=== PATIENT | female | born 1955 | race Asian ===

== ENCOUNTER 2017-08-03 06:14 | Day surgery (SDC) | payer BC, OTHER ==
[2017-08-03] MEDS ORDERED: NALOXONE (0.4 MG/ML) INJ IV ×2 (06:30)
[2017-08-03] MEDS ORDERED: LIDOCAINE 2% (SDV) 5 ML INJ (06:43)
[2017-08-03] MEDS ORDERED: ROCURONIUM 50 MG INJ (06:43)
[2017-08-03] MEDS ORDERED: GLYCOPYRROLATE 0.4 MG INJ (06:43)
[2017-08-03] MEDS ORDERED: PROPOFOL 20 ML (06:43)
[2017-08-03] MEDS ORDERED: NEOSTIGMINE 3 MG/3 ML SYRINGE (06:43)
[2017-08-03] MEDS ORDERED: FENTAnyl 50 MCG/ML VIAL (06:43)
[2017-08-03] MEDS ORDERED: MIDAZOLAM 1 MG/ML 2 ML INJ (06:43)
[2017-08-03] MEDS ORDERED: DEXAMETHASONE 4 MG/ML 1 ML INJ (06:48)
[2017-08-03] MEDS ORDERED: ONDANSETRON 4 MG INJ (06:48)
[2017-08-03] MEDS ORDERED: SUGAMMADEX SODIUM 200 MG/2 ML VIAL IV (06:54)
[2017-08-03] MEDS ORDERED: SOD CHLORIDE 0.9% 1,000 ML IV (07:00)
[2017-08-03] MEDS ORDERED: TROPICAMIDE 1% 15 ML OPH OPER (07:00)
[2017-08-03] MEDS: PROPARACAINE 0.5% 15 ML OPH OPER (07:24)
[2017-08-03] MEDS: PREDNISOLONE ACET 1% 5 ML OPH OPER (07:24)
[2017-08-03] MEDS: TROPICAMIDE 1% 3 ML OPH OPER (07:24)
[2017-08-03] MEDS: PHENYLephrine 2.5% 15 ML OPH OPER (07:24)
[2017-08-03] MEDS: MOXIFLOXACIN 0.5% 3 ML OPH OPER (07:24)
[2017-08-03 07:49] LABS: ADD MAN DIFF? NO
[2017-08-03 07:53] LABS: WHITE BLOOD COUNT 9.9 10^3/ul (4.8-10.8)
[2017-08-03 07:53] LABS: BASOPHIL # 0.1 10^3/ul (0.0-0.1); BASOPHILS % 1.4 % (0.0-2.0); EOSINOPHILS # 0.7 10^3/ul (0.0-0.5); HEMATOCRIT 32.8 % (37.0-47.0); HEMOGLOBIN 10.7 g/dl (12.0-16.0); LYMPHOCYTES # 2.5 10^3/ul (0.8-2.9); LYMPHOCYTES % 25.5 % (15.0-51.0); MEAN CORPUSCULAR HEMOGLOBIN 31.3 pg (29.0-33.0); MEAN CORPUSCULAR HGB CONC 32.6 g/dl (32.0-37.0); MEAN CORPUSCULAR VOLUME 95.9 fl (82.0-101.0); MEAN PLATELET VOLUME 9.2 fl (7.4-10.4); MONOCYTES % 10.5 % (0.0-11.0); NEUTROPHIL # 5.5 10^3/ul (1.6-7.5); NEUTROPHILS % 55.1 % (39.0-77.0); PLATELET COUNT 217 10^3/UL (140-415); RED BLOOD COUNT 3.42 10^6/ul (4.20-5.40); RED CELL DISTRIBUTION WIDTH 13.3 % (11.5-14.5)
[2017-08-03] MEDS ORDERED: SODIUM HYALURONATE 14 MG/ML SYG (07:57)
[2017-08-03] MEDS ORDERED: TOBRAMYCIN/DEXAMETH 3.5 GM OPH OINT (08:03)
[2017-08-03 08:19] LABS: ALANINE AMINOTRANSFERASE 32 IU/L (13-69); ALBUMIN 4.9 g/dl (3.3-4.9); ALBUMIN/GLOBULIN RATIO 1.19; ALKALINE PHOSPHATASE 76 IU/L (42-121); ANION GAP 19 (8-16); ASPARTATE AMINO TRANSFERASE 31 IU/L (15-46); BILIRUBIN,INDIRECT 0.4 mg/dl (0-1.1); BILIRUBIN,TOTAL 0.4 mg/dl (0.2-1.3); CARBON DIOXIDE 28 mmol/L (21-31); CHLORIDE 102 mmol/L (97-110); GLUCOSE 86 mg/dl (70-220)
[2017-08-03] MEDS: LIDOCAINE 1% (MPF) 5 ML VIAL INJ (08:20)
[2017-08-03 08:27] LABS: BLOOD UREA NITROGEN 41 mg/dl (7-20); CALCIUM 9.1 mg/dl (8.4-10.2); CREATININE 9.29 mg/dl (0.44-1.00); INR 0.92; PARTIAL THROMBOPLASTIN TIME 30.3 Sec (25.0-35.0); POTASSIUM 5.7 mmol/L (3.5-5.1); PROTIME 12.4 Sec (11.9-14.9); SODIUM 143 mmol/L (135-144)
[2017-08-03] MEDS ORDERED: TETRACAINE 0.5% 4 ML OPH (08:44)
[2017-08-03] MEDS ORDERED: LIDOCAINE 1% (MPF) 10 ML INJ (08:44)
[2017-08-03] MEDS ORDERED: EPINEPHrine 1 MG IN 3 ML (1:3000) FOR *INTRA-OP* USE INJ (09:00)
== END 2017-08-03 10:42 | disposition home or self-care (01) ==
LOC: SDS 06:14
DX: H25.12 Age-related nuclear cataract, left eye (principal); E11.9 Type 2 diabetes mellitus without complications; I12.0 Hypertensive chronic kidney disease with stage 5 chronic kidney disease or end stage renal disease; N18.6 End stage renal disease; Z99.2 Dependence on renal dialysis; E78.5 Hyperlipidemia, unspecified
CPT/HCPCS: 66984; 80053; 85025; 85610; 85730

== ENCOUNTER 2017-09-14 06:12 | Day surgery (SDC) | payer BC, OTHER ==
[2017-09-14] MEDS ORDERED: CA CHLORIDE 10% 10 ML SYRINGE (07:00)
[2017-09-14] MEDS ORDERED: TOBRAMYCIN/DEXAMETH 2.5 ML OPH (07:10)
[2017-09-14] MEDS ORDERED: TETRACAINE 0.5% 4 ML OPH (07:10)
[2017-09-14] MEDS ORDERED: BUPIVACAINE 0.5% (SDV) 30 ML INJ (07:10)
[2017-09-14] MEDS ORDERED: EPINEPHrine 1 MG INJ (07:13)
[2017-09-14] MEDS: TROPICAMIDE 1% 3 ML OPH OPER (07:48)
[2017-09-14] MEDS: MOXIFLOXACIN 0.5% 3 ML OPH OPER (07:48)
[2017-09-14] MEDS: PHENYLephrine 2.5% 15 ML OPH OPER (07:48)
[2017-09-14] MEDS: PREDNISOLONE ACET 1% 5 ML OPH OPER (07:49)
[2017-09-14] MEDS: PROPARACAINE 0.5% 15 ML OPH OPER (07:50)
[2017-09-14] MEDS ORDERED: SOD CHLORIDE 0.9% 1,000 ML IV (08:00)
[2017-09-14 08:08] LABS: ADD MAN DIFF? NO
[2017-09-14 08:20] LABS: BASOPHIL # 0.2 10^3/ul (0.0-0.1); BASOPHILS % 1.8 % (0.0-2.0); EOSINOPHILS # 0.6 10^3/ul (0.0-0.5); EOSINOPHILS % 7.2 % (0.0-7.0); HEMATOCRIT 38.4 % (37.0-47.0); HEMOGLOBIN 12.1 g/dl (12.0-16.0); LYMPHOCYTES # 2.4 10^3/ul (0.8-2.9); LYMPHOCYTES % 27.2 % (15.0-51.0); MEAN CORPUSCULAR HEMOGLOBIN 31.9 pg (29.0-33.0); MEAN CORPUSCULAR HGB CONC 31.5 g/dl (32.0-37.0); MEAN CORPUSCULAR VOLUME 101.3 fl (82.0-101.0); MEAN PLATELET VOLUME 9.2 fl (7.4-10.4); MONOCYTE # 0.9 10^3/ul (0.3-0.9); MONOCYTES % 10.7 % (0.0-11.0); NEUTROPHIL # 4.7 10^3/ul (1.6-7.5); NEUTROPHILS % 52.8 % (39.0-77.0); PLATELET COUNT 216 10^3/UL (140-415); RED BLOOD COUNT 3.79 10^6/ul (4.20-5.40); RED CELL DISTRIBUTION WIDTH 14.7 % (11.5-14.5)
[2017-09-14 08:20] LABS: WHITE BLOOD COUNT 8.8 10^3/ul (4.8-10.8)
[2017-09-14 08:34] LABS: POTASSIUM 5.9 mmol/L (3.5-5.1)
[2017-09-14 08:34] LABS: INR 0.92; PARTIAL THROMBOPLASTIN TIME 28.7 Sec (25.0-35.0); PROTIME 12.4 Sec (11.9-14.9)
[2017-09-14] MEDS ORDERED: LIDOCAINE 1%/EPI 30 ML INJ (08:34)
[2017-09-14 08:38] LABS: ALANINE AMINOTRANSFERASE 34 IU/L (13-69); ALBUMIN/GLOBULIN RATIO 1.38; ALKALINE PHOSPHATASE 75 IU/L (42-121); ANION GAP 19 (8-16); ASPARTATE AMINO TRANSFERASE 27 IU/L (15-46); BILIRUBIN,INDIRECT 0.4 mg/dl (0-1.1); BILIRUBIN,TOTAL 0.4 mg/dl (0.2-1.3); BLOOD UREA NITROGEN 40 mg/dl (7-20); CALCIUM 9.3 mg/dl (8.4-10.2); CARBON DIOXIDE 28 mmol/L (21-31); CHLORIDE 105 mmol/L (97-110); GLUCOSE 79 mg/dl (70-220); POTASSIUM 5.3 mmol/L (3.5-5.1); SODIUM 147 mmol/L (135-144); TOTAL PROTEIN 8.6 g/dl (6.1-8.1)
[2017-09-14] MEDS ORDERED: FENTAnyl 50 MCG/ML VIAL (08:54)
[2017-09-14] MEDS ORDERED: MIDAZOLAM 1 MG/ML 2 ML INJ (08:54)
[2017-09-14] MEDS ORDERED: ONDANSETRON 4 MG INJ IV (09:00)
[2017-09-14] MEDS ORDERED: LABETALOL HCL 20MG INJ IV (09:00)
[2017-09-14] MEDS ORDERED: FENTAnyl 50 MCG/ML VIAL IV (09:00)
[2017-09-14] MEDS ORDERED: hydrALAzine 20 MG INJ IV (09:00)
[2017-09-14] MEDS ORDERED: INSULIN REGULAR, HUMAN 100 UNIT/1 ML 3ML VIAL IVP (09:03)
[2017-09-14] MEDS ORDERED: DEXTROSE 50% 50 ML SYRINGE (09:12)
[2017-09-14] MEDS ORDERED: GLUCOSE GEL 15 GRAM TUBE PO ×2 (09:30)
[2017-09-14] MEDS ORDERED: GLUCOSE GEL 15 GRAM TUBE BUCCAL (09:30)
[2017-09-14] MEDS ORDERED: DEXTROSE 50% 50 ML SYRINGE IV ×2 (09:30)
[2017-09-14] MEDS ORDERED: GLUCAGON 1 MG INJ IM (09:30)
[2017-09-14 11:58] LABS: POTASSIUM 4.6 mmol/L (3.5-5.1)
== END 2017-09-14 12:15 | disposition home or self-care (01) ==
LOC: SDS 06:12
DX: H25.11 Age-related nuclear cataract, right eye (principal)
CPT/HCPCS: 66984; 80053; 84132; 85025; 85610; 85730